=== PATIENT | female | born 1945 | race Caucasian/White ===

== ENCOUNTER 2017-03-03 11:39 | Inpatient (IN) | payer MEDICARE, BC ==
[2017-03-03] MEDS ORDERED: ASPIRIN 81 MG CHEW PO STA (11:56)
[2017-03-03] MEDS ORDERED: IPRATROPIUM-ALBUTEROL 3 ML NEB INHALATION STA (11:56)
[2017-03-03] MEDS ORDERED: methylPREDNISolone SOD SUCCI 125 MG/2 ML VIAL IV STA (11:57)
--- NOTE | 2017-03-03 12:01 | ED ---
General Adult HPI - General Chief complaint: Chest Pain Stated complaint: CHEST PAIN, RT RIB PAIN Time Seen by Provider: 03/03/17 11:51 Source: patient, family, RN notes reviewed Mode of arrival: wheelchair Limitations: no limitations - History of Present Illness Initial comments: Patient 72-year-old female seen in past medical history for scleroderma, who presents emergency room today with chief complaint of increased cough congestion. Does admit that she was diagnosed with pneumonia this past Sunday. States she's been on the Levaquin for the past 3 days. States no improvement. Does admit to increased pain to the right side of the right lower rib. States worse with cough congestion and deep inspiration. Denies any other complaints associated symptoms. Patient denies any recent fever, chills, chest pain, back pain, abdominal pain, nausea or vomiting, numbness or tingling , dysuria or hematuria, constipation or diarrhea, headaches or visual changes, or any other complaints. - Related Data Home Medications Medication Instructions Recorded Confirmed FLUoxetine HCL [PROzac] 20 mg PO BID 07/31/14 03/03/17 NIFEdipine XL [Procardia XL] 30 mg PO BID 07/31/14 03/03/17 Mycophenolate Mofetil [Cellcept] 1,000 mg PO BID 06/14/16 03/03/17 Sildenafil [Revatio] 20 mg PO TID 06/14/16 03/03/17 Omeprazole 20 mg PO DAILY 08/07/16 03/03/17 HYDROcodone/APAP 7.5-325MG [[place] 1 tab PO QID PRN 03/03/17 03/03/17 7.5-325] Levofloxacin [Levaquin] 500 mg PO DAILY 03/03/17 03/03/17 Ondansetron [Zofran ODT] 4 mg PO QID PRN 03/03/17 03/03/17 Allergies Allergy/AdvReac Type Severity Reaction Status Date / Time No Known Allergies Allergy Verified 03/03/17 12:43 Review of Systems ROS Statement: Those systems with pertinent positive or pertinent negative responses have been documented in the HPI. ROS Other: All systems not noted in ROS Statement are negative. Past Medical History Past Medical History: GERD/Reflux, Respiratory Disorder, Skin Disorder Additional Past Medical History / Comment(s): pt has been diagnosed with scleraderma which affects lungs,skin and both hands about 8 yrs ago. PT HAD OSTEOMYLITIS TO R FOOT AND WAS ON ABX FOR APPROX A MONTH ABOUT 2 YRS AGO. 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 PT HAD HIATAL HERNIA REPAIRS YRS AGO. Past Anesthesia/Blood Transfusion Reactions: Postoperative Nausea & Vomiting ( PONV) Additional Past Anesthesia/Blood Transfusion Reaction / Comment(s): PT IS ON PROZAC FOR SCLERADERMA Past Psychological History: No Psychological Hx Reported Additional Psychological History / Comment(s): PT LIVES AT HOME WITH . PT IS ON PROZAC FOR SCLERADERMA NOT ANXIETY. Smoking Status: Former smoker Past Alcohol Use History: Rare Additional Past Alcohol Use History / Comment(s): PT DRINKS ALCOHOL 3 X A MONTH MAYBE. QUIT SMOKING 35 YRS AGO Past Drug Use History: None Reported - Past Family History Sister(s) Family Medical History: Cancer Father Family Medical History: Cancer Additional Family Medical History / Comment(s): FATHER AT AGE 69 OF PROSTRATE CA. Mother Additional Family Medical History / Comment(s): MOTHER AT AGE 91 OF OLD AGE. SHE HAD TIC DEL A RUE. General Exam - General Exam Comments Initial Comments: General: The patient is awake and alert, in no distress, and does not appear acutely ill. Eye: Pupils are equal, round and reactive to light, extra-ocular movements are intact. No nystagmus. There is normal conjunctiva bilaterally. No signs of icterus. Ears, nose, mouth and throat: There are moist mucous membranes and no oral lesions. Neck: The neck is supple, there is no tenderness or JVD. Cardiovascular: There is a regular rate and rhythm. No murmur, rub or gallop is appreciated. Respiratory: Diminished lung sounds bilaterally. respirations are non-labored , breath sounds are equal. No stridor, rales, or rhonchi. Gastrointestinal: Soft, non-distended, non-tender abdomen without masses or organomegaly noted. There is no rebound or guarding present. No CVA tenderness. Bowel sounds are unremarkable. Musculoskeletal: Normal ROM, no tenderness. Strength 5/5. Sensation intact. Pulses equal bilaterally 2+. Neurological: A&O x 3. CN II-XII intact, There are no obvious motor or sensory deficits. Coordination appears grossly intact. Speech is normal. Skin: Skin is warm and dry and no rashes or lesions are noted. Psychiatric: Cooperative, appropriate mood & affect, normal judgment. Limitations: no limitations Course Vital Signs 03/03/17 03/03/17 03/03/17 11:41 12:25 12:37 Temperature 98.6 F Pulse Rate 78 82 88 Respiratory 20 Rate Blood Pressure 104/53 O2 Sat by Pulse 93 L Oximetry 03/03/17 13:31 Temperature Pulse Rate 69 Respiratory 18 Rate Blood Pressure 109/58 O2 Sat by Pulse 100 Oximetry Medical Decision Making - Medical Decision Making Patient's chest x-ray does show a right-sided pneumonia. Patient's labs been reviewed. She is been on Levaquin for the last 3 days with no improvement. She is outpatient treatment failure he will be admitted to the hospital started on Rocephin and azithromycin. - Lab Data Result diagrams: 03/03/17 12:01 03/03/17 12:01 Lab Results 03/03/17 03/03/17 03/03/17 Range/Units 12:01 12:01 12:01 WBC 9.0 (3.8-10.6) k/uL RBC 3.94 (3.80-5.40) m/uL Hgb 12.5 (11.4-16.0) gm/dL Hct 37.6 (34.0-46.0) % MCV 95.4 (80.0-100.0) fL MCH 31.7 (25.0-35.0) pg MCHC 33.2 (31.0-37.0) g/dL RDW 13.4 (11.5-15.5) % Plt Count 306 (150-450) k/uL Neutrophils % 79 % Lymphocytes % 12 % Monocytes % 6 % Eosinophils % 1 % Basophils % 0 % Neutrophils # 7.1 (1.3-7.7) k/uL Lymphocytes # 1.1 (1.0-4.8) k/uL Monocytes # 0.6 (0-1.0) k/uL Eosinophils # 0.1 (0-0.7) k/uL Basophils # 0.0 (0-0.2) k/uL PT (9.0-12.0) sec INR (<1.1) APTT (22.0-30.0) sec Sodium 136 L (137-145) mmol/L Potassium 4.4 (3.5-5.1) mmol/L Chloride 101 (98-107) mmol/L Carbon Dioxide 24 (22-30) mmol/L Anion Gap 11 mmol/L BUN 12 (7-17) mg/dL Creatinine 0.72 (0.52-1.04) mg/dL Est GFR (MDRD) Af Amer >60 (>60 ml/min/1.73 sqM) Est GFR (MDRD) Non-Af >60 (>60 ml/min/1.73 sqM) Glucose 95 (74-99) mg/dL Calcium 9.4 (8.4-10.2) mg/dL Magnesium 2.2 (1.6-2.3) mg/dL Total Bilirubin 0.6 (0.2-1.3) mg/dL AST 14 (14-36) U/L ALT 19 (9-52) U/L Alkaline Phosphatase 78 (38-126) U/L Total Creatine Kinase 47 (30-135) U/L CK-MB (CK-2) 0.7 (0.0-2.4) ng/mL CK-MB (CK-2) Rel Index 1.5 Troponin I <0.012 (0.000-0.034) ng/mL Total Protein 6.8 (6.3-8.2) g/dL Albumin 3.7 (3.5-5.0) g/dL 03/03/17 Range/Units 12:01 WBC (3.8-10.6) k/uL RBC (3.80-5.40) m/uL Hgb (11.4-16.0) gm/dL Hct (34.0-46.0) % MCV (80.0-100.0) fL MCH (25.0-35.0) pg MCHC (31.0-37.0) g/dL RDW (11.5-15.5) % Plt Count (150-450) k/uL Neutrophils % % Lymphocytes % % Monocytes % % Eosinophils % % Basophils % % Neutrophils # (1.3-7.7) k/uL Lymphocytes # (1.0-4.8) k/uL Monocytes # (0-1.0) k/uL Eosinophils # (0-0.7) k/uL Basophils # (0-0.2) k/uL PT 9.8 (9.0-12.0) sec INR 1.0 (<1.1) APTT 24.2 (22.0-30.0) sec Sodium (137-145) mmol/L Potassium (3.5-5.1) mmol/L Chloride (98-107) mmol/L Carbon Dioxide (22-30) mmol/L Anion Gap mmol/L BUN (7-17) mg/dL Creatinine (0.52-1.04) mg/dL Est GFR (MDRD) Af Amer (>60 ml/min/1.73 sqM) Est GFR (MDRD) Non-Af (>60 ml/min/1.73 sqM) Glucose (74-99) mg/dL Calcium (8.4-10.2) mg/dL Magnesium (1.6-2.3) mg/dL Total Bilirubin (0.2-1.3) mg/dL AST (14-36) U/L ALT (9-52) U/L Alkaline Phosphatase (38-126) U/L Total Creatine Kinase (30-135) U/L CK-MB (CK-2) (0.0-2.4) ng/mL CK-MB (CK-2) Rel Index Troponin I (0.000-0.034) ng/mL Total Protein (6.3-8.2) g/dL Albumin (3.5-5.0) g/dL Disposition Clinical Impression: Community acquired pneumonia Disposition: ADMITTED IP TO THIS HOSP Condition: Good Referrals: Gissel Costello MD [Primary Care Provider] - 1-2 days Time of Disposition: 13:38
[2017-03-03 12:13] LABS: Basophils % (A) 0 %; CH 31.9; CHCM 33.6; Eosinophils # (A) 0.1 k/uL (0-0.7); Eosinophils % (A) 1 %; HCT 37.6 % (34.0-46.0); HDW 2.32; HGB 12.5 gm/dL (11.4-16.0); Luc # (Auto) 0.12; Luc % (Auto) 1; Lymphocytes # (A) 1.1 k/uL (1.0-4.8); Lymphocytes % (A) 12 %; MCH 31.7 pg (25.0-35.0); MCHC 33.2 g/dL (31.0-37.0); MCV 95.4 fL (80.0-100.0); Mean Platelet Volume 6.9; Monocytes # (A) 0.6 k/uL (0-1.0); Monocytes % (A) 6 %; Neutrophils # (A) 7.1 k/uL (1.3-7.7); Neutrophils % (A) 79 %; RBC 3.94 m/uL (3.80-5.40); RDW 13.4 % (11.5-15.5); WBC (Perox) 8.94
[2017-03-03 12:28] LABS: ALT 19 U/L (9-52); AST 14 U/L (14-36); Alkaline Phosphatase 78 U/L (38-126); Anion Gap 11 mmol/L; Blood Urea Nitrogen 12 mg/dL (7-17); Calcium 9.4 mg/dL (8.4-10.2); Carbon Dioxide 24 mmol/L (22-30); Chloride 101 mmol/L (98-107); Glucose 95 mg/dL (74-99); Magnesium 2.2 mg/dL (1.6-2.3); Non-African American GFR(MDRD) >60 (>60 ml/min/1.73 sqM); Potassium 4.4 mmol/L (3.5-5.1); Sodium 136 mmol/L (137-145); Total Bilirubin 0.6 mg/dL (0.2-1.3); Total Protein 6.8 g/dL (6.3-8.2)
[2017-03-03 12:32] LABS: Partial Thromboplastin Time 24.2 sec (22.0-30.0); Prothrombin Time 9.8 sec (9.0-12.0)
[2017-03-03 12:38] LABS: Creatine Kinase 47 U/L (30-135)
[2017-03-03 12:50] LABS: Creatine Kinase MB 0.7 ng/mL (0.0-2.4); Troponin I <0.012 ng/mL (0.000-0.034)
--- NOTE | 2017-03-03 13:06 | XR ---
EXAMINATION TYPE: XR chest 2V DATE OF EXAM: 03/03/2017 COMPARISON: Prior chest x-ray 03 February 2015 HISTORY: Chest pain and shortness of breath TECHNIQUE: Frontal and lateral views of the chest are obtained. FINDINGS: Interstitial changes persist at the lung bases, mixed airspace disease is suspected. Heart may be enlarged. No evident pneumothorax or pleural effusion. IMPRESSION: Correlate for pneumonia, there is underlying interstitial lung disease, pulmonary fibros is compatible with patient's history of scleroderma
[2017-03-03] MEDS ORDERED: ACETAMINOPHEN TAB 325 MG TAB PO PRN (13:39)
[2017-03-03] MEDS ORDERED: SODIUM CHLORIDE 0.9% 1,000 ML IV ONE (13:39)
[2017-03-03] MEDS ORDERED: NALOXONE 0.4 MG/ML 1 ML VIAL IV PRN (13:39)
[2017-03-03] MEDS ORDERED: ONDANSETRON 4 MG/2 ML VIAL IVP PRN (13:39)
[2017-03-03] MEDS ORDERED: PNEUMONIA PROTOCOL UTILIZED 1 EACH MISC PO PRN (13:41)
[2017-03-03] MEDS ORDERED: AZITHROMYCIN 500 MG in SODIUM CHLORIDE 0.9% 250 ML IVPB STA (13:41)
[2017-03-03 14:46] VITALS: BMI 19.1
[2017-03-03] MEDS ORDERED: ONDANSETRON ODT 4 MG TAB PO PRN (17:14)
[2017-03-03] MEDS ORDERED: ALPRAZolam 0.25 MG TAB PO PRN (17:16)
[2017-03-03] MEDS ORDERED: TEMAZEPAM 15 MG CAP PO PRN (17:16)
[2017-03-03] MEDS: SILDENAFIL 20 MG TAB PO SCH (18:12)
[2017-03-03] MEDS: HEPARIN SODIUM,PORCINE 5,000 UNIT/ML 1 ML VIAL SQ SCH (20:15)
[2017-03-03] MEDS: FLUoxetine HCL 20 MG CAP PO SCH (20:15)
[2017-03-03] MEDS: MYCOPHENOLATE MOFETIL 500 MG TAB PO SCH (20:16)
--- NOTE | 2017-03-03 22:18 | HP ---
DATE OF ADMISSION: 03/03/2017 CHIEF COMPLAINT: Cough, sputum, chest pain, shortness of breath. HISTORY OF PRESENT ILLNESS: This 72-year-old woman with a past medical history of multiple medical problems, including GERD, history of scleroderma, history of pulmonary fibrosis, history of remote history of nicotine dependence, being followed Dr. Costello in the outpatient setting, was having shortness of breath. The patient also had features of osteomyelitis and as well as hernia repair and pancreatitis also. The patient had a cough with not much sputum and the patient came to [facility] and admitted for further evaluation and treatment. The patient has been evaluated in the outpatient setting recently and has been on oral Levaquin for the last 3 days. Because of lack of improvement, the patient came to [facility] and admitted for further evaluation and treatment. The patient also had some chest pain, which is worsening on deep inspiration. A chest x-ray done on admission and reviewed, outpatient setting showed bilateral bibasilar lesions which is probably correlating with pulmonary fibrosis and definitely more shadows on the right side of the lung also. Pneumonia highly suspected. Patient was admitted for further evaluation and treatment. There is no history of rigors, chills. No history of headache, loss of consciousness or seizures. Past medical history of skin disorder, history of sclerodermal, history of pulmonary fibrosis. History of orthopedic surgeries, history of hernia surgery, history of hernia repairs. Medications prior to admission include home medications are: 1. Revatio 20 mg p.o. t.i.d. 2. Zofran 4 mg q.i.d. p.r.n. 3. Omeprazole 20 mg p.o. daily. 4. Procardia XL 30 mg p.o. q.i.d. 5. CellCept 2000 mg p.o. b.i.d. 6. Levaquin 500 mg p.o. daily. 7. [place] 7.5 q.i.d. p.r.n. 8. Prozac 20 mg p.o. b.i.d. ALLERGIES: None. FAMILY HISTORY: History of cancer, prostate cancer in father. SOCIAL HISTORY: Previous history of smoking. No history of alcohol intake. REVIEW OF SYSTEMS: ENT: No diminished vision. No diminished hearing. CARDIOVASCULAR: No angina or palpitations. RESPIRATORY: As mentioned earlier. GASTROINTESTINAL: As mentioned earlier. GENITOURINARY: No dysuria. CENTRAL NERVOUS SYSTEM: No numbness, weakness. ALLERGY/IMMUNOLOGY: No asthma or hayfever. MUSCULOSKELETAL: As mentioned earlier. HEMATOLOGY/ONCOLOGY: No history of anemia. ENDOCRINE: No history of diabetes, hypothyroidism. CONSTITUTIONAL: As mentioned earlier. DERMATOLOGY: Negative. RHEUMATOLOGY: Negative. PSYCHIATRY: As mentioned earlier. PHYSICAL EXAMINATION: The patient is alert and oriented times three. Pulse 72. Blood pressure 120/77. Respiratory rate 18. Temperature 98.7, pulse ox 98% on 2 L. HEENT: Conjunctivae normal. NECK: No jugular venous distention. CARDIOVASCULAR: S1, S2 muffled. RESPIRATORY: Breath sounds diminished at the bases. Bilateral scattered rhonchi. Coarse crackles at the bases also suggestive of pulmonary fibrosis, letharey crackles. ABDOMEN: Soft, nontender. No mass palpable. Legs: No edema. No swelling. Nervous system: Higher functions as mentioned earlier. Moves all four limbs. No focal deficits. LYMPHATICS: No lymph nodes palpable in the neck, axillae or groin. SKIN: Features of scleroderma present. Joints: joint deformities because of changes present. Otherwise, labs CBC within normal limits, sodium 136. Chest x-ray reviewed. ASSESSMENT: 1. Pulmonary fibrosis, acute exacerbation, with possible acute right hilar pneumonia possibly gram-negative. 2. Hyponatremia. 3. History of gastroesophageal reflux disease. 4. Scleroderma. 5. History of degenerative joint disease. 6. History of hiatal hernia repair. 7. History of pancreatitis. 8. History of gastroesophageal reflux disease. 9. History of osteomyelitis. RECOMMENDATIONS AND DISCUSSION: In this 72-year-old woman who presented with multiple complex medical issues, we will monitor the patient closely. Continue the current medications. Continue symptomatic treatment. Otherwise, recommend bronchodilators and empiric antibiotics. Closely monitor. Dr. Costello will be consulted. Guarded prognosis because of multiple complex medical issues. See orders for further details. Further recommendations to follow. A copy of dictation will be forwarded to Dr. Costello who is the primary care physician. DVT prophylaxis. The home medications will be continued. Cultures will be obtained. [facility]
[2017-03-04] MEDS: NIFEdipine XL 30 MG TAB.ER.24 PO SCH ×3 (00:01→22:23)
[2017-03-04] MEDS: SILDENAFIL 20 MG TAB PO SCH ×4 (00:02→22:23)
[2017-03-04] MEDS ORDERED: PANTOPRAZOLE 40 MG TABLET PO SCH (07:30)
[2017-03-04 07:36] LABS: Basophils % (A) 0 %; CHCM 33.5; Eosinophils # (A) 0.1 k/uL (0-0.7); Eosinophils % (A) 1 %; HCT 37.7 % (34.0-46.0); HDW 2.37; HGB 12.6 gm/dL (11.4-16.0); Luc # (Auto) 0.06; Luc % (Auto) 1; Lymphocytes # (A) 1.2 k/uL (1.0-4.8); Lymphocytes % (A) 14 %; MCH 32.2 pg (25.0-35.0); MCHC 33.6 g/dL (31.0-37.0); MCV 95.9 fL (80.0-100.0); Mean Platelet Volume 8.4; Monocytes # (A) 0.5 k/uL (0-1.0); Monocytes % (A) 6 %; Neutrophils # (A) 6.9 k/uL (1.3-7.7); Neutrophils % (A) 79 %; RBC 3.93 m/uL (3.80-5.40); RDW 13.3 % (11.5-15.5); WBC 8.7 k/uL (3.8-10.6); WBC (Perox) 9.26
--- NOTE | 2017-03-04 08:16 | XR ---
EXAMINATION TYPE: XR chest 2V DATE OF EXAM: 03/04/2017 COMPARISON: Prior chest x-ray February HISTORY: Pneumonia TECHNIQUE: Frontal and lateral views of the chest are obtained. FINDINGS: Similar findings. Underlying interstitial changes are again noted, difficult to exclude so me associated airspace disease. IMPRESSION: Similar findings to prior exam. Interstitial lung disease and pulmonary fibrosis. Correl ate to exclude pneumonia.
[2017-03-04 08:19] LABS: Anion Gap 9 mmol/L; Blood Urea Nitrogen 14 mg/dL (7-17); Carbon Dioxide 25 mmol/L (22-30); Chloride 107 mmol/L (98-107); Glucose 109 mg/dL (74-99); Non-African American GFR(MDRD) >60 (>60 ml/min/1.73 sqM); Potassium 4.4 mmol/L (3.5-5.1); Sodium 141 mmol/L (137-145)
[2017-03-04] MEDS: MYCOPHENOLATE MOFETIL 500 MG TAB PO SCH ×2 (08:26→21:42)
[2017-03-04] MEDS: AZITHROMYCIN 500 MG TAB PO SCH (08:26)
[2017-03-04] MEDS: HEPARIN SODIUM,PORCINE 5,000 UNIT/ML 1 ML VIAL SQ SCH ×2 (08:26→21:43)
[2017-03-04] MEDS: FLUoxetine HCL 20 MG CAP PO SCH ×2 (08:26→21:42)
[2017-03-04] MEDS: PANTOPRAZOLE 40 MG TABLET PO SCH (08:26)
[2017-03-04] MEDS ORDERED: LEVALBUTEROL NEB 1.25 MG/3 ML AMP INHALATION SCH (12:00)
[2017-03-04] MEDS: methylPREDNISolone SOD SUCCI 40 MG/ML 1 ML VIAL IV SCH ×3 (12:03→23:46)
[2017-03-04] MEDS: LEVALBUTEROL NEB 1.25 MG/3 ML AMP INHALATION SCH ×2 (13:11→21:17)
--- NOTE | 2017-03-04 14:05 | P.CNPUL ---
History of Present Illness Consult date: 03/04/17 Requesting physician: Lynda Randall Reason for consult: pneumonia, pulmonary fibrosis Chief complaint: Cough or shortness of breath and right-sided pleuritic chest pain. History of present illness: This is a 72-year-old female familiar to my service, I have seen this patient for many years for scleroderma and associated interstitial lung disease/ scleroderma lungs. Patient is also known to have history of severe GERD, pulmonary fibrosis, scleroderma lungs, pulmonary hypertension, secondary to scleroderma and interstitial lung disease. Patient has been maintained on revatio. Patient continues to follow-up with the scleroderma clinic at the [facility], and she was also seen in the pulmonary hypertension clinic at the [facility] in the last 6 months. Overall the patient has been doing relatively well considering his severe scleroderma, and her GI issues have been addressed by Dr. Alexander on outpatient basis. This time the patient presented to the ER after she failed outpatient therapy given to her by Dr. Montero for symptoms of cough and shortness of breath. Patient was given Levaquin for a few days, but she went on to develop worsening productive cough with yellow phlegm, and right-sided pleuritic chest pain. Chest x-ray on admission showed interstitial lung disease, possibility of underlying pneumonia is not entirely ruled out considering the interstitial changes in both lungs. Hence the patient was admitted, and this consult was initiated. Patient is already on antibiotics, bronchodilators, and I added steroids. For her pleurisy and pleuritic chest pain. Patient denies any headaches, no blurred vision, no dizziness. No nausea no vomiting no abdominal pain no melena no hematemesis. She does have symptoms of GERD. Denies any dysuria frequency or urgency. She does have some vague aches and pains, and she has symptoms of lobectomy and poor peripheral circulation with previous amputations of toes in both feet. Review of Systems 14 point review of systems were obtained, please refer to pertinent positives and negatives in HPI. Past Medical History Past Medical History: GERD/Reflux, Respiratory Disorder, Skin Disorder Additional Past Medical History / Comment(s): pt has been diagnosed with scleraderma which affects lungs,skin and both hands about 8 yrs ago. History of Any Multi-Drug Resistant Organisms: None Reported Past Surgical History: Hernia Repair, Orthopedic Surgery Additional Past Surgical History / Comment(s): PT HAD HIATAL HERNIA REPAIRS YRS AGO. 2nd toe to left and right foot amputated 2015 Past Anesthesia/Blood Transfusion Reactions: Postoperative Nausea & Vomiting ( PONV) Additional Past Anesthesia/Blood Transfusion Reaction / Comment(s): PT IS ON PROZAC FOR SCLERADERMA Past Psychological History: No Psychological Hx Reported Additional Psychological History / Comment(s): PT LIVES AT HOME WITH . PT IS ON PROZAC FOR SCLERADERMA NOT ANXIETY. Smoking Status: Former smoker Past Alcohol Use History: Rare Additional Past Alcohol Use History / Comment(s): PT DRINKS ALCOHOL 3 X A MONTH MAYBE. QUIT SMOKING 35 YRS AGO Past Drug Use History: None Reported - Past Family History Sister(s) Family Medical History: Cancer Father Family Medical History: Cancer Additional Family Medical History / Comment(s): FATHER AT AGE 69 OF PROSTRATE CA. Mother Additional Family Medical History / Comment(s): MOTHER AT AGE 91 OF OLD AGE. SHE HAD TIC DEL A RUE. Medications and Allergies Home Medications Medication Instructions Recorded Confirmed Type FLUoxetine HCL [PROzac] 20 mg PO BID 07/31/14 03/03/17 History NIFEdipine XL [Procardia XL] 30 mg PO BID 07/31/14 03/03/17 History Mycophenolate Mofetil [Cellcept] 1,000 mg PO BID 06/14/16 03/03/17 History Sildenafil [Revatio] 20 mg PO TID 06/14/16 03/03/17 History Omeprazole 20 mg PO DAILY 08/07/16 03/03/17 History HYDROcodone/APAP 7.5-325MG [[place] 1 tab PO QID PRN 03/03/17 03/03/17 History 7.5-325] Levofloxacin [Levaquin] 500 mg PO DAILY 03/03/17 03/03/17 History Ondansetron [Zofran ODT] 4 mg PO QID PRN 03/03/17 03/03/17 History Allergies Allergy/AdvReac Type Severity Reaction Status Date / Time No Known Allergies Allergy Verified 03/03/17 12:43 Physical Exam Vitals: Vital Signs Temp Pulse Pulse Resp BP BP Pulse Ox 03/04/17 13:22 80 03/04/17 13:12 78 03/04/17 07:00 97.4 F L 79 16 110/60 95 03/04/17 00:00 74 16 03/03/17 21:57 97.6 F 74 16 102/56 99 03/03/17 15:07 18 03/03/17 15:00 97.4 F L 79 16 130/65 95 03/03/17 14:39 98.6 F 72 18 129/60 98 03/03/17 14:14 72 18 129/60 98 Intake and Output 03/03/17 03/04/17 03/04/17 22:59 06:59 14:59 Intake Total 250 400 Balance 250 400 Intake: Oral 250 400 Other: Voiding Method Toilet Toilet Toilet # Voids 1 2 Weight 44.452 kg Patient Weight 03/05/17 06:59 Weight 44.452 kg Physical Exam: Revealed a 72-year-old female in no distress. HEENT:[Neck is supple.] [No neck masses.] [No thyromegaly.] [No JVD.] Chest: [Fine Velcro rales and crackles noted at the bases bilaterally, more so on the right base. No rhonchi no wheezes..] Cardiac Exam: [Normal S1 and S2, no S3 gallop, no murmur.] Abdomen: [Soft, nontender, no megaly, no rebound, no guarding, normal bowel sounds.] Extremities: [Positive sclerodactyly and hidebound skin.] Neurological Exam: [No focal neurologic deficit.] Results - Laboratory Findings CBC and BMP: 03/04/17 06:55 03/04/17 06:55 PT/INR, D-dimer PT 9.8 sec (9.0-12.0) 03/03/17 12:01 INR 1.0 (<1.1) 03/03/17 12:01 Abnormal lab findings: Abnormal Labs 03/03/17 03/04/17 12:01 06:55 Sodium 136 L Glucose 109 H - Diagnostic Findings Chest x-ray: image reviewed (Chest x-ray is suggestive of interstitial lung disease bilaterally, difficult to rule out underlying pneumonia.) Assessment and Plan Plan: Impression: 1 acute community-acquired pneumonia, superimposed on interstitial lung disease/ scleroderma lungs. Failed outpatient therapy. Likely gram-negative pneumonia in nature. 2 acute right-sided pleurisy related to scleroderma lungs and pneumonia. 3 history of scleroderma, sclerodactyly, and severe GERD. 4 history of severe peripheral vessel occlusive disease, scleroderma related, required amputation of toes 2 in the past. 5 history of osteomyelitis also related to scleroderma and poor peripheral circulation. 6 history of pulmonary hypertension related to scleroderma/interstitial lung disease. Recommendation: Agree with the present treatment plan, continue antibiotics, steroids were added for the symptoms of pleurisy, continue bronchodilators in the form of Xopenex. Expect improvement over the next couple of days, and follow-up on outpatient basis. Time with Patient: Greater than 30
[2017-03-04 17:19] LABS: Glucose,Whole Blood 170 mg/dL (75-99)
[2017-03-04] MEDS: INSULIN LISPRO (humaLOG) 300 UNIT/3 ML VIAL SQ SCH ×2 (17:20→21:43)
[2017-03-04 20:10] LABS: Hemoglobin A1C 5.7 % (4.2-6.1)
[2017-03-04 20:11] LABS: Glucose,Whole Blood 145 mg/dL (75-99)
[2017-03-04] MEDS: HYDROcodone/APAP 7.5-325MG 1 EACH TAB PO PRN (21:47)
[2017-03-05 06:50] LABS: Basophils % (A) 0 %; CH 31.2; CHCM 31.7; Eosinophils # (A) 0.1 k/uL (0-0.7); Eosinophils % (A) 1 %; HCT 37.5 % (34.0-46.0); HDW 2.26; HGB 12.1 gm/dL (11.4-16.0); Luc # (Auto) 0.03; Luc % (Auto) 0; Lymphocytes % (A) 9 %; MCHC 32.3 g/dL (31.0-37.0); MCV 98.9 fL (80.0-100.0); Mean Platelet Volume 7.5; Monocytes # (A) 0.3 k/uL (0-1.0); Monocytes % (A) 3 %; Neutrophils # (A) 8.9 k/uL (1.3-7.7); Neutrophils % (A) 86 %; RBC 3.79 m/uL (3.80-5.40); RDW 13.5 % (11.5-15.5); WBC 10.3 k/uL (3.8-10.6); WBC (Perox) 11.22
[2017-03-05 07:03] LABS: Anion Gap 9 mmol/L; Blood Urea Nitrogen 16 mg/dL (7-17); Calcium 9.8 mg/dL (8.4-10.2); Carbon Dioxide 26 mmol/L (22-30); Chloride 105 mmol/L (98-107); Glucose 151 mg/dL (74-99); Non-African American GFR(MDRD) >60 (>60 ml/min/1.73 sqM); Potassium 4.6 mmol/L (3.5-5.1); Sodium 140 mmol/L (137-145)
[2017-03-05] MEDS: LEVALBUTEROL NEB 1.25 MG/3 ML AMP INHALATION SCH ×3 (07:16→20:30)
[2017-03-05] MEDS: MYCOPHENOLATE MOFETIL 500 MG TAB PO SCH ×2 (07:48→21:56)
[2017-03-05] MEDS: HEPARIN SODIUM,PORCINE 5,000 UNIT/ML 1 ML VIAL SQ SCH ×2 (07:48→21:55)
[2017-03-05] MEDS: NIFEdipine XL 30 MG TAB.ER.24 PO SCH ×2 (07:48→21:55)
[2017-03-05] MEDS: PANTOPRAZOLE 40 MG TABLET PO SCH (07:48)
[2017-03-05] MEDS: FLUoxetine HCL 20 MG CAP PO SCH ×2 (07:48→21:55)
[2017-03-05] MEDS: SILDENAFIL 20 MG TAB PO SCH ×3 (07:48→21:56)
[2017-03-05] MEDS: AZITHROMYCIN 500 MG TAB PO SCH (07:48)
[2017-03-05] MEDS: INSULIN LISPRO (humaLOG) 300 UNIT/3 ML VIAL SQ SCH ×4 (07:49→21:51)
[2017-03-05] MEDS: methylPREDNISolone SOD SUCCI 40 MG/ML 1 ML VIAL IV SCH (07:49)
[2017-03-05 08:23] LABS: Glucose,Whole Blood 245 mg/dL (75-99)
--- NOTE | 2017-03-05 10:21 | PN ---
DATE OF SERVICE: 03/04/2017 This 72-year-old woman being followed by Dr. Costello in the outpatient setting was admitted with significant shortness of breath and pulmonary fibrosis acute exacerbation with possible pneumonia. Acute gram-negative pneumonia has been considered as a possibility. Patient is on broad-spectrum IV antibiotics. Patient will be closely monitored. Dr. Costello is following the patient closely. No chest pain, no palpitations. On exam, alert and oriented x3. Pulse 73, blood pressure 103/53, respirations 16, temperature 97.4, pulse ox 97% on room air. HEENT: Conjunctivae normal. NECK: No jugular venous distention. CARDIOVASCULAR: S1 and S2. RESPIRATORY: Breath sounds diminished at the bases. Bilateral scattered rhonchi and crackles. ABDOMEN: Soft, nontender. LEGS: No edema, no swelling. NERVOUS SYSTEM: No focal deficits. LABS: Glucose 170. ASSESSMENT: 1. Acute right lower lobe pneumonia possibly gram-negative. Possibly right hilar pneumonia. 2. Pulmonary fibrosis, acute exacerbation. 3. Hyponatremia. 4. History of gastroesophageal reflux disease. 5. Scleroderma generalized. 6. History of degenerative joint disease. 7. History of hiatal hernia repair. 8. History of pancreatitis. 9. History of gastroesophageal reflux disease. 10. History of osteomyelitis. 11. Increased random blood sugar, possibly secondary to steroids. 12. FULL CODE. RECOMMENDATIONS AND DISCUSSION: In this 72-year-old woman present with multiple complex medical issues, will monitor the patient closely. Continue the current medications. Continue symptomatic treatment. Continue bronchodilators. Continue steroids, continue empiric antibiotics. Closely follow with Dr. Costello. Otherwise, monitor blood sugars closely. Further recommendations to follow.
[2017-03-05 11:36] LABS: Glucose,Whole Blood 106 mg/dL (75-99)
--- NOTE | 2017-03-05 13:28 | P.PN ---
Subjective Principal diagnosis: Acute community-acquired pneumonia and interstitial lung disease/scleroderma lungs This is a 72-year-old female familiar to my service, I have seen this patient for many years for scleroderma and associated interstitial lung disease/ scleroderma lungs. Patient is also known to have history of severe GERD, pulmonary fibrosis, scleroderma lungs, pulmonary hypertension, secondary to scleroderma and interstitial lung disease. Patient has been maintained on revatio. Patient continues to follow-up with the scleroderma clinic at the [facility], and she was also seen in the pulmonary hypertension clinic at the [facility] in the last 6 months. Overall the patient has been doing relatively well considering his severe scleroderma, and her GI issues have been addressed by Dr. Alexander on outpatient basis. This time the patient presented to the ER after she failed outpatient therapy given to her by Dr. Montero for symptoms of cough and shortness of breath. Patient was given Levaquin for a few days, but she went on to develop worsening productive cough with yellow phlegm, and right-sided pleuritic chest pain. Chest x-ray on admission showed interstitial lung disease, possibility of underlying pneumonia is not entirely ruled out considering the interstitial changes in both lungs. Hence the patient was admitted, and this consult was initiated. Patient is already on antibiotics, bronchodilators, and I added steroids. For her pleurisy and pleuritic chest pain. Patient denies any headaches, no blurred vision, no dizziness. No nausea no vomiting no abdominal pain no melena no hematemesis. She does have symptoms of GERD. Denies any dysuria frequency or urgency. She does have some vague aches and pains, and she has symptoms of lobectomy and poor peripheral circulation with previous amputations of toes in both feet. Reevaluated today on 03/05/2017, patient is feeling much better, breathing easier , and the pain apparently responded well to IV Solu-Medrol. I plan to switch her to oral prednisone, oral antibiotics could be given tomorrow, and possibly discharge the patient home in the next 24 hours. Objective - Vital Signs Vital signs: Vital Signs Temp 98 F 03/05/17 07:00 Pulse 80 03/05/17 07:28 Resp 16 03/05/17 07:00 BP 105/56 03/05/17 07:00 Pulse Ox 97 03/05/17 07:18 Intake & Output 03/04/17 03/05/17 03/05/17 18:59 06:59 18:59 Intake Total 360 750 Balance 360 750 Weight 44.452 kg Intake: IV 160 Sodium Chloride 0.9% 1, 160 000 ml @ 20 mls/hr IV . Q24H [facility] Rx#:[id number] Oral 360 590 Other: Voiding Method Toilet Toilet Toilet # Voids 2 1 - Exam Physical Exam: Revealed a 72-year-old female in no distress. HEENT:[Neck is supple.] [No neck masses.] [No thyromegaly.] [No JVD.] Chest: [Fine Velcro rales and crackles noted at the bases bilaterally, more so on the right base. No rhonchi no wheezes..] Cardiac Exam: [Normal S1 and S2, no S3 gallop, no murmur.] Abdomen: [Soft, nontender, no megaly, no rebound, no guarding, normal bowel sounds.] Extremities: [Positive sclerodactyly and hidebound skin.] Neurological Exam: [No focal neurologic deficit.] - Labs CBC & Chem 7: 03/05/17 06:20 03/05/17 06:20 Labs: Abnormal Lab Results - Last 24 Hours (Table) 03/04/17 03/04/17 03/05/17 Range/Units 17:15 20:09 06:20 RBC 3.79 L (3.80-5.40) m/uL Neutrophils # 8.9 H (1.3-7.7) k/uL Glucose (74-99) mg/dL POC Glucose (mg/dL) 170 H 145 H (75-99) mg/dL 03/05/17 03/05/17 03/05/17 Range/Units 06:20 08:11 11:35 RBC (3.80-5.40) m/uL Neutrophils # (1.3-7.7) k/uL Glucose 151 H (74-99) mg/dL POC Glucose (mg/dL) 245 H 106 H (75-99) mg/dL Microbiology - Last 24 Hours (Table) 03/03/17 21:40 Urine Culture - Final Urine,Voided 03/04/17 21:18 Sputum Culture - Preliminary Sputum 03/03/17 12:01 Blood Culture - Preliminary Blood No Growth after 24 hours Assessment and Plan Plan: Impression: 1 acute community-acquired pneumonia, superimposed on interstitial lung disease/ scleroderma lungs. Failed outpatient therapy. Likely gram-negative pneumonia in nature. 2 acute right-sided pleurisy related to scleroderma lungs and pneumonia. 3 history of scleroderma, sclerodactyly, and severe GERD. 4 history of severe peripheral vessel occlusive disease, scleroderma related, required amputation of toes 2 in the past. 5 history of osteomyelitis also related to scleroderma and poor peripheral circulation. 6 history of pulmonary hypertension related to scleroderma/interstitial lung disease. Recommendation: Agree with the present treatment plan, continue antibiotics, IV Cerebyx will be switched to oral steroids for the symptoms of pleurisy, continue bronchodilators in the form of Xopenex. Expect discharge planning in the next 24 hours. Time with Patient: Less than 30
[2017-03-05] MEDS: predniSONE 10 MG TAB PO SCH (14:35)
[2017-03-05 17:12] LABS: Glucose,Whole Blood 120 mg/dL (75-99)
[2017-03-05 20:25] LABS: Glucose,Whole Blood 121 mg/dL (75-99)
[2017-03-05] MEDS: HYDROcodone/APAP 7.5-325MG 1 EACH TAB PO PRN (21:55)
[2017-03-06 07:22] LABS: Glucose,Whole Blood 74 mg/dL (75-99)
[2017-03-06 07:25] LABS: Basophils % (A) 0 %; CH 31.3; CHCM 31.8; Eosinophils # (A) 0.1 k/uL (0-0.7); Eosinophils % (A) 1 %; HCT 36.1 % (34.0-46.0); HDW 2.28; HGB 11.4 gm/dL (11.4-16.0); Luc # (Auto) 0.15; Luc % (Auto) 1; Lymphocytes # (A) 2.1 k/uL (1.0-4.8); Lymphocytes % (A) 16 %; MCH 31.1 pg (25.0-35.0); MCHC 31.5 g/dL (31.0-37.0); MCV 98.6 fL (80.0-100.0); Mean Platelet Volume 7.2; Monocytes # (A) 0.8 k/uL (0-1.0); Monocytes % (A) 6 %; Neutrophils # (A) 10.3 k/uL (1.3-7.7); Neutrophils % (A) 77 %; RBC 3.66 m/uL (3.80-5.40); RDW 13.6 % (11.5-15.5); WBC 13.5 k/uL (3.8-10.6); WBC (Perox) 14.46
[2017-03-06] MEDS: LEVALBUTEROL NEB 1.25 MG/3 ML AMP INHALATION SCH ×3 (07:25→11:12)
--- NOTE | 2017-03-06 07:27 | PN ---
DATE OF SERVICE: 03/05/2017 This 72-year-old woman was admitted with acute exacerbation with pneumonia is improved significantly. No chest pain, no palpitations. No fever. On exam alert and oriented x3. Pulse is 80, blood pressure 100/50, respirations 16, temperature 98 degrees, pulse ox 99% on room air. HEENT: Conjunctivae normal. NECK: No jugular venous distention. CARDIOVASCULAR: S1 and S2, muffled. RESPIRATORY: Breath sounds diminished at the bases. Bilateral scattered rhonchi and crackles. ABDOMEN: Soft, nontender. LEGS: No edema, no swelling. NERVOUS SYSTEM: No focal deficits. LABS: CBC within normal limits and glucose 151. ASSESSMENT: 1. Acute right lower lobe pneumonia with possibly gram-negative, possible right hilar pneumonia. 2. Pulmonary fibrosis, acute exacerbation. 3. Hyponatremia. 4. History of gastroesophageal reflux disease. 5. Scleroderma generalized. 6. History of degenerative joint disease. 7. History of hiatal hernia repair. 8. History of pancreatitis. 9. History of osteomyelitis. 10. Increased creatinine. RECOMMENDATIONS AND DISCUSSION: I recommend to continue the current medications, continue monitoring and symptomatic treatment. Otherwise at this time, I would recommend to continue with current medications, continue with bronchodilators and p.o. steroids per Dr. Costello. Guarded prognosis. Further recommendations to follow. [facility]
[2017-03-06 07:37] LABS: Anion Gap 6 mmol/L; Blood Urea Nitrogen 16 mg/dL (7-17); Calcium 9.7 mg/dL (8.4-10.2); Carbon Dioxide 30 mmol/L (22-30); Chloride 104 mmol/L (98-107); Glucose 87 mg/dL (74-99); Non-African American GFR(MDRD) >60 (>60 ml/min/1.73 sqM); Potassium 4.9 mmol/L (3.5-5.1); Sodium 140 mmol/L (137-145)
[2017-03-06] MEDS: INSULIN LISPRO (humaLOG) 300 UNIT/3 ML VIAL SQ SCH ×2 (07:59→13:19)
[2017-03-06] MEDS: HEPARIN SODIUM,PORCINE 5,000 UNIT/ML 1 ML VIAL SQ SCH (08:00)
[2017-03-06] MEDS: AZITHROMYCIN 500 MG TAB PO SCH (08:00)
[2017-03-06] MEDS: MYCOPHENOLATE MOFETIL 500 MG TAB PO SCH (08:00)
[2017-03-06] MEDS: FLUoxetine HCL 20 MG CAP PO SCH (08:00)
[2017-03-06] MEDS: PANTOPRAZOLE 40 MG TABLET PO SCH (08:00)
[2017-03-06] MEDS: NIFEdipine XL 30 MG TAB.ER.24 PO SCH (08:01)
[2017-03-06] MEDS: SILDENAFIL 20 MG TAB PO SCH (08:01)
[2017-03-06] MEDS: predniSONE 10 MG TAB PO SCH (08:01)
[2017-03-06 09:53] VITALS: BP 116/56; RESP 18; TEMP 97.4
[2017-03-06 11:27] VITALS: PULSE 72
[2017-03-06 11:43] LABS: Glucose,Whole Blood 95 mg/dL (75-99)
--- NOTE | 2017-03-06 12:05 | P.PN ---
Subjective Principal diagnosis: Community-acquired pneumonia and interstitial lung disease/scleroderma lungs. This is a 72-year-old female familiar to my service, I have seen this patient for many years for scleroderma and associated interstitial lung disease/ scleroderma lungs. Patient is also known to have history of severe GERD, pulmonary fibrosis, scleroderma lungs, pulmonary hypertension, secondary to scleroderma and interstitial lung disease. Patient has been maintained on revatio. Patient continues to follow-up with the scleroderma clinic at the [facility], and she was also seen in the pulmonary hypertension clinic at the [facility] in the last 6 months. Overall the patient has been doing relatively well considering his severe scleroderma, and her GI issues have been addressed by Dr. Alexander on outpatient basis. This time the patient presented to the ER after she failed outpatient therapy given to her by Dr. Montero for symptoms of cough and shortness of breath. Patient was given Levaquin for a few days, but she went on to develop worsening productive cough with yellow phlegm, and right-sided pleuritic chest pain. Chest x-ray on admission showed interstitial lung disease, possibility of underlying pneumonia is not entirely ruled out considering the interstitial changes in both lungs. Hence the patient was admitted, and this consult was initiated. Patient is already on antibiotics, bronchodilators, and I added steroids. For her pleurisy and pleuritic chest pain. Patient denies any headaches, no blurred vision, no dizziness. No nausea no vomiting no abdominal pain no melena no hematemesis. She does have symptoms of GERD. Denies any dysuria frequency or urgency. She does have some vague aches and pains, and she has symptoms of lobectomy and poor peripheral circulation with previous amputations of toes in both feet. Reevaluated today on 03/05/2017, patient is feeling much better, breathing easier , and the pain apparently responded well to IV Solu-Medrol. I plan to switch her to oral prednisone, oral antibiotics could be given tomorrow, and possibly discharge the patient home in the next 24 hours. The patient was seen again today 03/06/2017 in follow-up on the regular medical floor. She is awake and alert in no acute distress. She has done quite well. She is actually anxious to go home. She feels she is nearly back to her baseline as far as her pulmonary status is concerned. She is maintaining good O2 saturations in the mid 90s on room air. She's been afebrile. Hemodynamically stable. Urine, blood and sputum cultures reveal no growth. Objective - Vital Signs Vital signs: Vital Signs Temp 97.4 F L 03/06/17 07:00 Pulse 72 03/06/17 11:26 Resp 18 03/06/17 07:00 BP 116/56 03/06/17 07:00 Pulse Ox 95 03/06/17 07:00 Intake & Output 03/05/17 03/06/17 03/06/17 18:59 06:59 18:59 Intake Total 50 240 Balance 50 240 Intake: Intake, IV Titration 50 Amount cefTRIAXone 1,000 mg In 50 Sodium Chloride 0.9% 50 ml @ 100 mls/hr IVPB Q24H [facility] Rx#:[id number] Oral 240 Other: Voiding Method Toilet Toilet Toilet # Voids 1 - Exam Physical Exam: Revealed a 72-year-old female in no distress. HEENT:[Neck is supple.] [No neck masses.] [No thyromegaly.] [No JVD.] Chest: [Fine Velcro rales and crackles noted at the bases bilaterally, more so on the right base. No rhonchi no wheezes..] Cardiac Exam: [Normal S1 and S2, no S3 gallop, no murmur.] Abdomen: [Soft, nontender, no megaly, no rebound, no guarding, normal bowel sounds.] Extremities: [Positive sclerodactyly and hidebound skin.] Neurological Exam: [No focal neurologic deficit.] - Labs CBC & Chem 7: 03/06/17 06:50 03/06/17 06:50 Labs: Abnormal Lab Results - Last 24 Hours (Table) 03/05/17 03/05/17 03/06/17 Range/Units 17:11 20:21 06:50 WBC 13.5 H (3.8-10.6) k/uL RBC 3.66 L (3.80-5.40) m/uL Neutrophils # 10.3 H (1.3-7.7) k/uL POC Glucose (mg/dL) 120 H 121 H (75-99) mg/dL 03/06/17 Range/Units 07:20 WBC (3.8-10.6) k/uL RBC (3.80-5.40) m/uL Neutrophils # (1.3-7.7) k/uL POC Glucose (mg/dL) 74 L (75-99) mg/dL Microbiology - Last 24 Hours (Table) 03/03/17 12:01 Blood Culture - Preliminary Blood No Growth after 48 hours 03/04/17 21:18 Gram Stain - Preliminary Sputum Sputum Culture - Preliminary 03/03/17 21:40 Urine Culture - Final Urine,Voided Assessment and Plan Plan: Impression: 1 acute community-acquired pneumonia, superimposed on interstitial lung disease/ scleroderma lungs. Failed outpatient therapy. Likely gram-negative pneumonia in nature. 2 acute right-sided pleurisy related to scleroderma lungs and pneumonia. 3 history of scleroderma, sclerodactyly, and severe GERD. 4 history of severe peripheral vessel occlusive disease, scleroderma related, required amputation of toes 2 in the past. 5 history of osteomyelitis also related to scleroderma and poor peripheral circulation. 6 history of pulmonary hypertension related to scleroderma/interstitial lung disease. Plan: The patient was seen and evaluated by Dr. Montero. She is cleared for discharge from the pulmonary standpoint. She'll continue with her usual home pulmonary medications including prednisone and complete her course of antibiotics. She' ll follow-up with Dr. Costello in 1-2 weeks' time. She is however encouraged to call sooner with any recurrence of symptoms or other questions or concerns.
--- NOTE | 2017-03-07 07:55 | DS ---
DATE OF ADMISSION: 03/03/2017 DATE OF DISCHARGE: 03/06/2017 DATE OF SERVICE: 03/06/2017 FINAL DIAGNOSES: 1. Acute right lower lobe pneumonia with possibly gram-negative, possibly right hilar pneumonia. 2. Pulmonary fibrosis, acute exacerbation. 3. Hyponatremia. 4. History of gastroesophageal reflux disease. 5. Scleroderma, generalized. 6. History of degenerative joint disease. 7. History of hiatal hernia repair. 8. History of pancreatitis. 9. History of osteomyelitis. 10. Increased creatinine. DISCHARGE DISPOSITION: The patient will be discharged in stable condition with guarded prognosis. Dr. Montero cleared the patient for discharge. HISTORY OF PRESENT ILLNESS: This 72-year-old woman with a past medical history of multiple medical problems admitted with acute right lower lobe pneumonia with possibly gram negative and right hilar pneumonia. Patient was treated with antibiotics , bronchodilators, and steroids. Patient improved significantly. Dr. Costello saw the patient. On exam, vitals are stable. CARDIOVASCULAR SYSTEM: S1, S2 muffled. RESPIRATORY: A few rhonchi and crackles especially right more than the left. DISCHARGE ADVICE: 1. Diet is cardiac. 2. Activity limited until followup. 3. Follow up with Dr. Costello in 2 to 3 days as recommended. Other medications are: 1. Ceftin 500 mg p.o. b.i.d. for 5 days. 2. Prozac 20 mg p.o. b.i.d. 3. [place] 7.5 q.i.d. p.r.n. 4. CellCept 1000 mg p.o. b.i.d. 5. Procardia XL 30 mg p.o. b.i.d. 6. Omeprazole 20 mg daily. 7. Zofran 4 mg p.o. q.i.d. p.r.n. 8. Prednisone taper, so that will be 30 mg daily for 3 days, 20 for 3 days, 10 for 3 days and discontinue. 9. Revatio 20 mg p.o. b.i.d. Once again, the patient will be discharged in stable condition with guarded prognosis.
== END 2017-03-06 14:10 | disposition home or self-care (01) | DRG 178 ==
LOC: EC 11:39 → 5MS5E 13:31
PROVIDERS: ADMIT Hospitalist; ATTEND Hospitalist
DX: J15.6 Pneumonia due to other Gram-negative bacteria (principal); M34.81 Systemic sclerosis with lung involvement; E87.1 Hypo-osmolality and hyponatremia; I27.2 Other secondary pulmonary hypertension; J84.17 Other interstitial pulmonary diseases with fibrosis in diseases classified elsewhere; K21.9 Gastro-esophageal reflux disease without esophagitis; R09.1 Pleurisy; M19.90 Unspecified osteoarthritis, unspecified site; I73.9 Peripheral vascular disease, unspecified; Z79.899 Other long term (current) drug therapy; Z87.891 Personal history of nicotine dependence; Z89.429 Acquired absence of other toe(s), unspecified side
CPT/HCPCS: 36415; 71020; 80048; 80053; 82550; 82553; 83036; 83735; 84484; 85025; 85610; 85730; 87040; 87070; 87086; 87205; 93005; 94640; 94760; 96365; 96375; 99214; 99285

== ENCOUNTER 2017-07-05 10:44 | Emergency (ER) | payer MEDICARE, BC ==
--- NOTE | 2017-07-05 11:16 | ED ---
General Adult HPI - General Chief complaint: Head Injury Stated complaint: head pain Time Seen by Provider: 07/05/17 11:08 Source: patient, RN notes reviewed Mode of arrival: ambulatory Limitations: no limitations - History of Present Illness Initial comments: 72-year-old female presents to the emergency Department chief complaint of headache. Patient states that about a week ago she hit her head on the doorknob. She continues to have residual headaches. Patient states he seemed to be getting worse. Patient denies any loss of consciousness. Patient states she's been acting normally. Patient denies any nausea vomiting or neck pain with this. Patient was concerned because she continues to have this mild headache so she thought that she should be evaluated. Patient denies any recent fever, chills, shortness of breath, chest pain, back pain, abdominal pain, nausea vomiting, numbness or tingling, dysuria or hematuria, constipation or diarrhea, visual changes, or any other current symptoms. - Related Data Home Medications Medication Instructions Recorded Confirmed FLUoxetine HCL [PROzac] 20 mg PO BID 07/31/14 07/05/17 NIFEdipine XL [Procardia XL] 30 mg PO BID 07/31/14 07/05/17 Mycophenolate Mofetil [Cellcept] 1,000 mg PO BID 06/14/16 07/05/17 Sildenafil [Revatio] 20 mg PO TID 06/14/16 07/05/17 HYDROcodone/APAP 7.5-325MG [[place] 1 tab PO QID PRN 03/03/17 07/05/17 7.5-325] Aspirin 81 mg PO DAILY 07/05/17 07/05/17 Omeprazole [PriLOSEC] 40 mg PO DAILY 07/05/17 07/05/17 predniSONE [predniSONE] 10 mg PO DIRECTED 07/05/17 07/05/17 Allergies Allergy/AdvReac Type Severity Reaction Status Date / Time No Known Allergies Allergy Verified 07/05/17 11:39 Review of Systems ROS Statement: Those systems with pertinent positive or pertinent negative responses have been documented in the HPI. ROS Other: All systems not noted in ROS Statement are negative. Past Medical History Past Medical History: GERD/Reflux, Respiratory Disorder, Skin Disorder Additional Past Medical History / Comment(s): pt has been diagnosed with scleraderma which affects lungs,skin and both hands about 8 yrs ago. History of Any Multi-Drug Resistant Organisms: None Reported Past Surgical History: Hernia Repair, Orthopedic Surgery Additional Past Surgical History / Comment(s): PT HAD HIATAL HERNIA REPAIRS YRS AGO. 2nd toe to left and right foot amputated 2015 Past Anesthesia/Blood Transfusion Reactions: Postoperative Nausea & Vomiting ( PONV) Additional Past Anesthesia/Blood Transfusion Reaction / Comment(s): PT IS ON PROZAC FOR SCLERADERMA Past Psychological History: No Psychological Hx Reported Smoking Status: Former smoker Past Alcohol Use History: Rare Past Drug Use History: None Reported - Past Family History Sister(s) Family Medical History: Cancer Father Family Medical History: Cancer Additional Family Medical History / Comment(s): FATHER AT AGE 69 OF PROSTRATE CA. Mother Additional Family Medical History / Comment(s): MOTHER AT AGE 91 OF OLD AGE. SHE HAD TIC DEL A RUE. General Exam - General Exam Comments Initial Comments: 17-year-old female presents for head ache after a head injury one week ago. This time patient underwent a CAT scan. CAT scan shows no acute process. Discussed patient mostly has a concussion approximately post concussive syndrome. We did discuss follow-up with her doctor we did discuss return parameters all the family's questions. They stated they understood and the patient is in agreement plan. This and the patient will be discharged. Limitations: no limitations Course Vital Signs 07/05/17 11:03 Temperature 97.4 F L Pulse Rate 65 Respiratory 18 Rate Blood Pressure 113/64 O2 Sat by Pulse 100 Oximetry Disposition Clinical Impression: Postconcussion syndrome Disposition: HOME SELF-CARE Condition: Stable Instructions: Post Concussion Syndrome (ED) Additional Instructions: Please use medication as discussed. Please follow up with family doctor if symptoms have not improved over the next two days. Please return to the emergency room if your symptoms increase or worsen or for any other concerns. Referrals: Gissel Costello MD [Primary Care Provider] - 1-2 days Time of Disposition: 11:53
--- NOTE | 2017-07-05 11:50 | CT ---
EXAMINATION TYPE: CT brain lynnine wo con DATE OF EXAM: 07/05/2017 COMPARISON: NONE HISTORY: Head pain CT DLP: Brain (1126.50) and C-spine (275.50) mGycm. Automated Exposure Control for Dose Reduction was Utilized. TECHNIQUE: CT scan of the head and cervical spine are performed without contrast. FINDINGS: There is no acute intracranial hemorrhage, mass effect, or midline shift identified. The ventricles and sulci are symmetrically prominent compatible with age-related atrophy. The globes ar e intact. Minimal mucosal thickening involving is seen within the dependent sphenoid sinus. Dystrophi c basal ganglia calcifications are seen bilaterally. Atherosclerosis is seen of the intracranial vasc ulature. Cervical spine is visualized in its entirety from C1 through upper thoracic levels and demonstrates n o evidence of acute fracture or dislocation. There is slight grade 1 anterolisthesis of C2 on C3 with left lateral facet arthropathy. No evidence of perched facets or jumped facets. Anterolisthesis is l ikely degenerative in nature. Prevertebral soft tissue appears within normal limits. The C1-C2 artic ulation is unremarkable. Multilevel degenerative changes are seen of the cervical spine, moderate in degree resulting in variable degrees of neural foraminal narrowing. This could further be assessed wi th MRI if clinically indicated. Biapical pleural-parenchymal thickening is noted. IMPRESSION: 1. There is no acute fracture or dislocation evident in the cervical spine. Grade 1 anterolisthesis o f C2 on C3 is likely degenerative in nature with left lateral facet arthropathy. 2. No acute intracranial hemorrhage, mass effect, or midline shift is seen.
[2017-07-05 12:05] VITALS: BP 124/58; PULSE 57; RESP 17; TEMP 98.3
== END 2017-07-05 12:07 | disposition home or self-care (01) ==
LOC: EC 10:44
DX: F07.81 Postconcussional syndrome (principal); K21.9 Gastro-esophageal reflux disease without esophagitis; L98.8 Other specified disorders of the skin and subcutaneous tissue; Z87.891 Personal history of nicotine dependence; Z79.52 Long term (current) use of systemic steroids; Z79.82 Long term (current) use of aspirin; Z79.899 Other long term (current) drug therapy; W22.8XXA Striking against or struck by other objects, initial encounter
CPT/HCPCS: 70450; 72125; 99283

== ENCOUNTER 2017-07-28 10:29 | Emergency (ER) | payer MEDICARE, BC ==
[2017-07-28 10:43] VITALS: TEMP 98.2
[2017-07-28] MEDS ORDERED: ONDANSETRON ODT 4 MG TAB PO STA (11:02)
[2017-07-28] MEDS ORDERED: MORPHINE SULFATE 10 MG/ML SYRINGE IM STA ×2 (11:02→11:06)
--- NOTE | 2017-07-28 11:46 | CT ---
EXAMINATION TYPE: CT brain lynnine wo con DATE OF EXAM: 07/28/2017 COMPARISON: Previous study dated 07/05/2017. HISTORY: Headache CT DLP: 1319.70 mGycm Automated exposure control for dose reduction was used. TECHNIQUE: CT scan of the head and cervical spine are performed without contrast. FINDINGS: BRAIN: Central structures are midline. There is no evidence of hydrocephalus. No acute focal lesion, mass effect or midline shift is seen. I do not see evidence of intracranial blood. There is some phys iologic calcification of the basal ganglia. Visualized portions of the paranasal sinuses and mastoids are clear. No depressed skull fracture is s een.. IMPRESSION: NO ACUTE INTRACRANIAL ABNORMALITY. CERVICAL SPINE:THERE IS SOME GROUNDGLASS OPACITY IN THE LEFT UPPER LOBE. THIS WAS NOT PRESENT ON THE PREVIOUS EXAMINATION. THIS MAY REPRESENT ALVEOLITIS OR PNEUMONITIS. PREVERTEBRAL SOFT TISSUES ARE NORMAL. THERE IS A STABLE, DEGENERATIVE ANTEROLISTHESIS OF C2 ON C3. ALIGNMENT IS OTHERWISE MAINTAINED. ATLAN TOAXIAL RELATIONSHIPS ARE NORMAL. THERE IS DISC SPACE LOSS AND HYPERTROPHIC SPONDYLOSIS AT C4-5, C5-6 AND C6-7. THERE IS UNCOVERTEBRAL JOINT DISEASE AT THESE LEVELS. THE FACETS ARE REASONABLY WELL-MAINTAINED. THERE IS NO DEFINITE PROTRU HERNÁN. NO FRACTURE IS IDENTIFIED. IMPRESSION: 1. NO ACUTE OSSEOUS LESION. 2. DEGENERATIVE CHANGE. 3. PATCHY GROUNDGLASS OPACITY IN THE LEFT UPPER LOBE MAY REPRESENT PNEUMONITIS OR ALVEOLITIS.
--- NOTE | 2017-07-28 12:27 | ED ---
Headache HPI - General Chief Complaint: Headache Stated Complaint: headache Time Seen by Provider: 07/28/17 10:50 Mode of arrival: ambulatory Limitations: no limitations - History of Present Illness Initial Comments: She has a history of recent concussion, that was back in July 05 she was seen in ER had a head CT and neck CT head CT was unremarkable neck CT reveals some anterior listhesis. She was using her [place]'s she feels pain has got worse over the last 3 days pain is on the top of the head at the frontal sinus area, no fever no chills no neck stiffness no new trauma to the head - Related Data Home Medications Medication Instructions Recorded Confirmed FLUoxetine HCL [PROzac] 20 mg PO BID 07/31/14 07/28/17 NIFEdipine XL [Procardia XL] 30 mg PO BID 07/31/14 07/28/17 Mycophenolate Mofetil [Cellcept] 1,000 mg PO BID 06/14/16 07/28/17 Sildenafil [Revatio] 20 mg PO TID 06/14/16 07/28/17 HYDROcodone/APAP 7.5-325MG [[place] 1 tab PO QID PRN 03/03/17 07/28/17 7.5-325] Aspirin 81 mg PO DAILY 07/05/17 07/28/17 Omeprazole [PriLOSEC] 40 mg PO DAILY 07/05/17 07/28/17 Previous Rx's Medication Instructions Recorded Amoxicillin 500 mg PO Q8H #30 capsule 07/28/17 Gabapentin [Neurontin] 100 mg PO DAILY #30 capsule 07/28/17 Allergies Allergy/AdvReac Type Severity Reaction Status Date / Time No Known Allergies Allergy Verified 07/28/17 12:20 Review of Systems ROS Statement: Those systems with pertinent positive or pertinent negative responses have been documented in the HPI. ROS Other: All systems not noted in ROS Statement are negative. Past Medical History Past Medical History: GERD/Reflux, Respiratory Disorder, Skin Disorder Additional Past Medical History / Comment(s): pt has been diagnosed with scleraderma which affects lungs,skin and both hands about 8 yrs ago. History of Any Multi-Drug Resistant Organisms: None Reported Past Surgical History: Hernia Repair, Orthopedic Surgery Additional Past Surgical History / Comment(s): PT HAD HIATAL HERNIA REPAIRS YRS AGO. 2nd toe to left and right foot amputated Nov. 2016 Past Anesthesia/Blood Transfusion Reactions: Postoperative Nausea & Vomiting ( PONV) Additional Past Anesthesia/Blood Transfusion Reaction / Comment(s): PT IS ON PROZAC FOR SCLERADERMA Past Psychological History: No Psychological Hx Reported Smoking Status: Former smoker Past Alcohol Use History: Rare Past Drug Use History: None Reported - Past Family History Sister(s) Family Medical History: Cancer Father Family Medical History: Cancer Additional Family Medical History / Comment(s): FATHER AT AGE 69 OF PROSTRATE [place]. Mother Additional Family Medical History / Comment(s): MOTHER AT AGE 91 OF OLD AGE. SHE HAD TIC DEL A RUE. General Exam - General Exam Comments Initial Comments: General: The patient is awake and alert, in no distress, and does not appear acutely ill. Skin: Skin is warm and dry and no rashes or lesions are noted. Eye: Pupils are equal, round and reactive to light, extra-ocular movements are intact; there is normal conjunctiva bilaterally. Ears, nose, mouth and throat: There are moist mucous membranes and no oral lesions. SHe is tender over the sinuses Neck: The neck is supple, there is no tenderness or JVD. Cardiovascular: There is a regular rate and rhythm. No murmur, rub or gallop is appreciated. Respiratory: To auscultation bilateral, no wheezing no rhonchi no distress respiratory finch noticed Gastrointestinal: Soft, non-distended, non-tender abdomen without masses or organomegaly noted. There is no rebound or guarding present. Bowel sounds are unremarkable. Back: There is no tenderness to palpation in the midline. There is no obvious deformity. Musculoskeletal: Normal ROM, no tenderness, There is no pedal edema. There is no calf tenderness or swelling. No cords were appreciated. Neurological: CN II-XII intact, Cranial nerves III through XII are intact. There are no obvious motor or sensory deficits. Coordination appears grossly intact. Speech is normal. Psychiatric: Cooperative, appropriate mood & affect, normal judgment. Limitations: no limitations Course Vital Signs 07/28/17 07/28/17 10:42 12:52 Temperature 98.2 F Pulse Rate 78 67 Respiratory 20 18 Rate Blood Pressure 123/59 125/72 O2 Sat by Pulse 97 96 Oximetry Recent imaging studies were reviewed, discussed with the patient CT cervical spine showed some degenerative changes similar to previous one and head CT to rule out any intracranial bleed. She agreed to do a course of antibiotics for sinusitis and we'll try Neurontin for her headache Disposition Clinical Impression: Headache, Concussion Disposition: HOME SELF-CARE Condition: Good Instructions: Acute Headache (ED) Prescriptions: Amoxicillin 500 mg PO Q8H #30 capsule Gabapentin [Neurontin] 100 mg PO DAILY #30 capsule Referrals: Gissel Costello MD [Primary Care Provider] - 1-2 days
[2017-07-28 12:54] VITALS: BP 125/72; PULSE 67; RESP 18
== END 2017-07-28 13:14 | disposition home or self-care (01) ==
LOC: EC 10:29
DX: S06.0X0A Concussion without loss of consciousness, initial encounter (principal); K21.9 Gastro-esophageal reflux disease without esophagitis; Z87.891 Personal history of nicotine dependence; Z79.82 Long term (current) use of aspirin; Z79.899 Other long term (current) drug therapy
CPT/HCPCS: 99284 ×2; 96372 ×2; 72125; 70450; J2270